=== PATIENT | female | born 1985 | race Caucasian/White ===

== ENCOUNTER → 2020-06-05 16:30 | Outpatient (BNVA) | payer BC, SELFPAY | PROVIDERS: PCP Nurse Practitioner Family; Visit Provider Nurse Practitioner Family | DX: M79.641 Pain in right hand (principal) | CPT/HCPCS: 73130 ==

== ENCOUNTER → 2021-05-18 11:00 | Outpatient (BNVA) | payer BC, SELFPAY | PROVIDERS: PCP Nurse Practitioner Family; Visit Provider Nurse Practitioner Family | DX: I10 Essential (primary) hypertension (principal); Z13.6 Encounter for screening for cardiovascular disorders; Z79.899 Other long term (current) drug therapy; E55.9 Vitamin D deficiency, unspecified | CPT/HCPCS: 80053; 80061; 81003; 82088; 82306; 83036; 84244; 84439; 84443; 85025; 87086 ==

== ENCOUNTER → 2021-06-01 14:56 | Outpatient (BNVA) | payer BC, SELFPAY | PROVIDERS: PCP Nurse Practitioner Family; Visit Provider Family Medicine | DX: I10 Essential (primary) hypertension (principal) | CPT/HCPCS: 84156 ==

== ENCOUNTER 2021-06-16 11:30 | Outpatient (CLI) | payer BC, SELFPAY ==
[2021-06-16 12:58] LABS: Anion Gap 13.7 (5-19); Blood Urea Nitrogen 7 mg/dL (6-20); Calcium 8.9 mg/dL (8.5-10.5); Carbon Dioxide 27 mmol/L (22-29); Chloride 101 mmol/L (98-107); Glomerular Filtration Rate 139.6 mL/min (90-130); Glucose 86 mg/dL (65-115); Osmolality Calculated 281 mOsm/kg (285-295); Potassium 4.7 mmol/L (3.5-5.1); Sodium 137 mmol/L (136-145)
[2021-06-16 13:04] LABS: Free T4 Free Thyroxine 1.04 ng/dL (0.82-1.77)
[2021-06-20 13:08] LABS: Plasma Renin Activity LC/MS/MS 13.66 ng/mL/h (0.25-5.82)
== END 2021-06-16 11:31 | disposition home or self-care (01) ==
PROVIDERS: PCP Nurse Practitioner Family; Visit Provider Internal Medicine
DX: E26.09 Other primary hyperaldosteronism (principal); E55.9 Vitamin D deficiency, unspecified
CPT/HCPCS: 36415; 80048; 82088; 84244; 84439

== ENCOUNTER 2022-08-25 11:10 | Outpatient (CLI) | payer BC, SELFPAY ==
--- NOTE | 2022-08-25 11:21 | MM_ITS ---
WS: [id number] VIEWS: MLO and CC views both breasts. 3D digital tomosynthesis is also included in this exam. No comparisons. Findings: There was no sign of mass, architectural distortion or suspicious calcification in either breast. Th e breasts are heterogeneously dense MM/[place] [id number] Impression: BI-RADS: 2-Benign FOLLOW-UP: 1 Year Follow-up This mammogram was also analyzed by the Computer Aided Detection System R2 Imag e Market Risk Specialist.
== END 2022-08-25 11:11 | disposition home or self-care (01) ==
LOC: RAD 11:10
PROVIDERS: PCP Family Medicine; Visit Provider Family Medicine
DX: Z12.31 Encounter for screening mammogram for malignant neoplasm of breast (principal)
CPT/HCPCS: 77063; 77067

== ENCOUNTER → 2023-09-20 09:18 | Outpatient (BNVA) | payer BC, SELFPAY | PROVIDERS: PCP Family Medicine; Visit Provider Nurse Practitioner Family | DX: R00.2 Palpitations (principal); K21.9 Gastro-esophageal reflux disease without esophagitis | CPT/HCPCS: 80053; 84443; 85025 ==

== ENCOUNTER 2024-12-18 10:21 | Outpatient (CLI) | payer BC, SELFPAY ==
[2024-12-18 11:23] LABS: Hematocrit 44.9 % (36-47); Hemoglobin 15.60 g/dL (11.27-16.99); Mean Corpuscular HGB Conc 34.7 g/dL (30-55); Mean Corpuscular Hemoglobin 30.0 pg (27-33); Mean Corpuscular Volume 86.3 fl (85-98); Nucleated Red Blood Cells % 0 %; Platelet Count 307 10^3/cmm (157-399); Red Blood Count 5.20 10^6/uL (3.85-5.65); White Blood Count 7.32 10^3/uL (3.29-11.43)
[2024-12-18 11:30] LABS: Glucose Urine UA Negative (Normal); Nitrate Urine Negative (Negative); Specific Gravity, Urine 1.023 (1.005-1.030)
[2024-12-18 11:42] LABS: Estmated Average Glucose 117; Hemoglobin A1C 5.7 % (4.0-6.0)
[2024-12-18 12:06] LABS: Alanine Aminotransferase 13 U/L (0-33); Albumin Level 4.6 g/dL (3.5-5.2); Alkaline Phosphatase 69 U/L (35-105); Anion Gap 14.7 (5-19); Aspartate Amino Transferase 15 U/L (0-32); Blood Urea Nitrogen 10 mg/dL (6-20); Calcium 9.3 mg/dL (8.5-10.5); Carbon Dioxide 24 mmol/L (22-29); Chloride 102 mmol/L (98-107); Cholesterol 264 mg/dL (0-200); Globulin 3.1 g/dL (1.3-4.6); Glucose 83 mg/dL (65-115); HDL Cholesterol 51 mg/dL (60-100); Osmolality Calculated 282 mOsm/kg (285-295); Potassium 3.7 mmol/L (3.5-5.1); Sodium 137 mmol/L (136-145); Thyroid Stimulating Hormone 2.52 uIU/mL (0.27-4.20); Total Protein 7.7 g/dL (6.6-8.7); Triglycerides 103 mg/dL (0-150)
[2024-12-18 12:45] LABS: Free T4 Free Thyroxine 1.02 ng/dL (0.82-1.77)
== END 2024-12-18 10:22 | disposition home or self-care (01) ==
PROVIDERS: PCP Nurse Practitioner Family; Visit Provider Nurse Practitioner Family
DX: E26.09 Other primary hyperaldosteronism (principal); E55.9 Vitamin D deficiency, unspecified; I10 Essential (primary) hypertension; M54.12 Radiculopathy, cervical region; Z79.899 Other long term (current) drug therapy
CPT/HCPCS: 36415; 80053; 80061; 81001; 82088; 82306; 83036; 84244; 84439; 84443; 85025; 87086

== ENCOUNTER 2024-12-31 11:02 | Outpatient (CLI) | payer BC, SELFPAY ==
--- NOTE | 2024-12-31 11:15 | US_ITS ---
WS: [id number] THYROID ULTRASOUND HISTORY: E04.1 - Nontoxic single thyroid nodule COMPARISON: 09/11/2018 Right lobe: 1.5 cm x 1.3 cm x 4.3 cm (w x ap x l). Volume: 3.9 cm3. Normal sized gland. Hypoechoic nodule with shadowing in the mid anterior thyroid. Please note location was labeled as superior pole on the imaging but this doesn't appear to be in the mid gland as compared to the prior study and the sagittal image. Hypoechoic nodule with shadowing measures 0.5 x 0.4 x 0.5 cm and has not changed in size. No additional nodule. Left lobe: 1.0 cm x 0.9 cm x 4.1 cm (w x ap x l). Volume: 1.8 cm3. Small caliber thyroid. Very subtle hypoechoic nodule in the lower pole measures 0.5 x 0.4 x 0.5 cm. No increased vascularity. No echogenic foci. Isthmus: 0.3 cm. US/US thyroid [id number] IMPRESSION: 1. RIGHT thyroid nodule does not fit any TI-RADS category. This is a small nod ule which has been stable since 2019. Due to the echogenic foci consider yearly ultrasound evaluation. FNA not recommended. 2. Stable hypoechoic nodule LEFT thyroid. No FNA recommended.
== END 2024-12-31 11:03 | disposition home or self-care (01) ==
LOC: RAD 11:02
PROVIDERS: PCP Nurse Practitioner Family; Visit Provider Nurse Practitioner Family
DX: E04.1 Nontoxic single thyroid nodule (principal); R59.0 Localized enlarged lymph nodes
CPT/HCPCS: 76536

== ENCOUNTER 2025-02-07 10:05 | Outpatient (CLI) | payer BC, SELFPAY ==
--- NOTE | 2025-02-07 11:00 | CTR_ITS ---
PROCEDURE INFORMATION: Exam: CT Abdomen And Pelvis Without And With Contrast Exam date and time: 02/07/2025 11:29 AM Age: 39 years old Clinical indication: Condition or disease; Other: Other primary hyperaldosteronism; Prior surgery; Surgery date: 6+ months; Surgery type: Hyst; Additional info: E26.09 - other primary hyperaldosteronism TECHNIQUE: Imaging protocol: Computed tomography of the abdomen and pelvis without and with contrast. Radiation optimization: All CT scans at this facility use at least one of these dose optimization techniques: automated exposure control; mA and/or kV adjustment per patient size (includes targeted exams where dose is matched to clinical indication); or iterative reconstruction. Contrast material: OMNI 350; Contrast volume: 100 ml; Contrast route: INTRAVENOUS (IV); COMPARISON: No relevant prior studies available. RADIATION DOSE METRICS: Total DLP (mGy-cm): 782.13 FINDINGS: Liver: Normal. No mass. Gallbladder and biliary ducts: Normal. No calcified stones. No ductal dilation. Pancreas: Normal. No ductal dilation. Spleen: Normal. No splenomegaly. Adrenal glands: Normal. No mass. Kidneys and ureters: Focal cortical scarring along the upper pole of the left kidney. No hydronephrosis. Stomach and bowel: Unremarkable. No obstruction. No mucosal thickening. Appendix: No evidence of appendicitis. Intraperitoneal space: Trace free pelvic fluid may be physiologic. Vasculature: Unremarkable. No abdominal aortic aneurysm. Lymph nodes: Unremarkable. No enlarged lymph nodes. Urinary bladder: Unremarkable as visualized. Reproductive: Status post hysterectomy. No suspicious adnexal mass. 1.7 cm likely involuting corpus luteum in the right ovary. Bones/joints: Unremarkable. No acute fracture. Soft tissues: Unremarkable. CT/CT abdomen pelvis wo/w [id number] IMPRESSION: No acute findings.
[2025-02-07] MEDS: iohexol 350 mg/mL 500 mL Btl (per mL) PO (11:08)
[2025-02-07] MEDS: iohexol 350 mg/mL 500 mL Btl (per mL) IV (11:38)
== END 2025-02-07 10:06 | disposition home or self-care (01) ==
LOC: RAD 10:09
PROVIDERS: PCP Nurse Practitioner Family; Visit Provider Nurse Practitioner Family
DX: E26.09 Other primary hyperaldosteronism (principal); I10 Essential (primary) hypertension
CPT/HCPCS: 74178

== ENCOUNTER → 2025-02-11 14:04 | Outpatient (BNVA) | payer BC, SELFPAY | PROVIDERS: PCP Nurse Practitioner Family; Referring Provider Nurse Practitioner Family; Visit Provider Internal Medicine Cardiovascular Disease | DX: R07.9 Chest pain, unspecified (principal) | CPT/HCPCS: 93005 ==

== ENCOUNTER 2025-02-28 10:49 | Outpatient (CLI) | payer BC, SELFPAY ==
--- NOTE | 2025-02-28 11:00 | USCV_ITS ---
Yocasta Romero Age: 39 Gender: F : 1985 Exam Date: 02/28/2025 11:10 Ordering Phys: Hugo Beltran MD ([email or web address]) Technologist: Exam Location: [facility] – [place] Indication: HTN Aortic Velocity @ SMA (cm/s) 129 RIGHT KIDNEY LEFT KIDNEY Velocity (cm/s) Velocity (cm/s) Sys/Persaud Sys/Persaud Resistive Index Resistive Index 142.2 / 64.9 0.54 Proximal Renal Artery 149.5 / 68.9 0.54 149.9 / 67.5 0.55 Mid Renal Artery 89.4 / 39.0 0.56 164.0 / 52.0 0.55 Distal Renal Artery 87.6 / 43.7 0.50 126.9 / 56.8 0.55 Hilar 151.8 / 68.9 0.55 29.3 / 11.3 0.62 Upper Pole 63.6 / 26.3 0.59 44.4 / 21.3 0.51 Mid Pole 53.9 / 22.5 0.58 35.3 / 17.3 0.51 Lower Pole 48.0 / 16.6 0.65 1.27 Renal Aortic Ratio 1.18 Accleration Time (sec) 0.19 Hilar 0.19 0.22 Upper Pole 0.59 0.18 Mid Pole 0.21 0.16 Lower Pole 0.21 11.3 Kidney Length (cm) 10.3 CONCLUSIONS No sonographic evidence of hemodynamically significant renal artery stenosis bilaterally. Normal Resistive indices No hydronephrosis in either kidney Acosta Flores MD (Electronically Signed) Final Date: 28 February 2025 15:26 S
--- NOTE | 2025-02-28 11:55 | ECG_ITS ---
[facility] Date: 2025-02-28 Pat Name: Yocasta Romero Department: Room: Gender: Female Vehicle Damage Appraiser: : 1985 Requested By: Hugo Beltran Order Number: [id number] Trevon MD: Nathaniel Phillip M.D. Interpretive Statements Lung unchanged pre/post procedure; Intraprocedure shortess of breath; Symptoms resoled by discharge PROCEDURE: At the baseline, the patient's blood pressure was 148/103 with a heart rate of 82. The baseline electrocardiogram showed normal sinus rhythm with normal ST-Ts. The patient exercised for 7 minutes and 15 seconds on a standard Devyn protocol. Patient attained a maximum heart rate of 191 beats per minute(106% of the maximum predicted heart rate) with a blood pressure at the peak exercise of 183/102 mm Hg. The EKG at the peak exercise revealed nonspecific ST change. Patient did not have any chest pain or any significant cardiac arrhythmias with the exercise During the recovery phase, there were no new changes. Blood pressure at the end of the recovery phase was 134/93 mm Hg with a heart rate of 101 per minute. CONCLUSION: 1. Nonspecific EKG response to treadmill exercise 2. No exercise-induced chest pain or cardiac arrhythmia 3. Fair exercise tolerance, attained a maximum of 10.2 METs Electronically Signed On 03-03-2025 20:59:58 CDT by Nathaniel Phillip M.D. [email or web address]
[2025-02-28 12:00] VITALS: BMI 27.4
[2025-02-28 12:27] VITALS: BP 134/93; PULSE 98
== END 2025-02-28 10:50 | disposition home or self-care (01) ==
LOC: RAD 10:52 → CDL 11:57
PROVIDERS: PCP Nurse Practitioner Family; Visit Provider Internal Medicine Cardiovascular Disease
DX: R07.9 Chest pain, unspecified (principal); I10 Essential (primary) hypertension; R94.31 Abnormal electrocardiogram [ECG] [EKG]; I49.8 Other specified cardiac arrhythmias
CPT/HCPCS: 93017; 93975

== ENCOUNTER 2025-05-20 15:22 | Outpatient (CLI) | payer BC, SELFPAY | END 2025-05-20 15:23 | disposition home or self-care (01) | LOC: SLEEP 15:24 | PROVIDERS: PCP Nurse Practitioner Family; Referring Provider Internal Medicine Cardiovascular Disease; Visit Provider Internal Medicine Pulmonary Disease | DX: G47.30 Sleep apnea, unspecified (principal) | CPT/HCPCS: G0399 ==